=== PATIENT | female | born 1960 | race Two or more races ===

== ENCOUNTER → 2017-12-03 | Outpatient (CLI) | payer OTHER ==
[~2017-12-03] VITALS: Ht 152.4 cm; Wt 68.0 kg
[~2017-12-03] MED LIST: AVAPRO300 MG PO; GILTUSS TR TAB1 EACH PO; HYDROCHLOROTHIA25 MG PO; LEVAQUIN500 MG PO; LEVOXYL50 MCG PO; VASOFLEX FORTE1 CAP PO; ZOCOR40 MG PO; ZYRTEC10 MG PO; [UNRECOGNIZED DRUG - REMARK]; [UNRECOGNIZED DRUG - REMARK]
== END | disposition home or self-care (01) ==
LOC: PPHC 11:44
DX: Z76.0 Encounter for issue of repeat prescription (principal)

== ENCOUNTER → 2018-01-04 12:40 | Outpatient (CLI) | payer OTHER | END | disposition home or self-care (01) | LOC: EKG 12:40 | DX: R42 Dizziness and giddiness (principal); R07.9 Chest pain, unspecified ==

== ENCOUNTER 2018-01-04 12:49 | Outpatient (CLI) | payer OTHER | END 2018-01-04 13:00 | disposition home or self-care (01) | LOC: LAB 12:49 | DX: R42 Dizziness and giddiness (principal) ==

== ENCOUNTER 2018-01-04 13:00 | Outpatient (CLI) | payer OTHER | END 2018-01-04 17:00 | disposition home or self-care (01) | LOC: TOM 13:00 | DX: R42 Dizziness and giddiness (principal) ==

== ENCOUNTER → 2018-01-04 | Outpatient (CLI) | payer OTHER | END | disposition home or self-care (01) | LOC: PPHC 10:51 | DX: R51 Headache (principal) ==

== ENCOUNTER 2021-09-16 09:10 | Outpatient (CLI) | payer OTHER | END 2021-09-16 09:13 | disposition home or self-care (01) | LOC: SONOGRAMA 09:10 | PROVIDERS: ATTEND Pathology Anatomic Pathology & Clinical Pathology | DX: D34 Benign neoplasm of thyroid gland (principal); E04.8 Other specified nontoxic goiter; E07.89 Other specified disorders of thyroid ==

== ENCOUNTER → 2022-05-22 | Outpatient (CLI) | payer OTHER | END | disposition home or self-care (01) | LOC: SONOGRAMA 09:16 | PROVIDERS: ATTEND Pathology Anatomic Pathology & Clinical Pathology | DX: E04.2 Nontoxic multinodular goiter (principal) ==